=== PATIENT | male | born 1955 | race Caucasian/White ===

== ENCOUNTER 2017-03-14 22:41 | Emergency (ER) | payer OTHER ==
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
[2017-03-15 01:10] VITALS: BP 138/60
--- NOTE | 2017-03-18 10:37 | ER Document Report ---
Doctor's Note Notes: 03/18/17 10:36 I was presented with the patient's chart and a request for an MRI request. Patient was seen here following him the CT and CT scan showed bulging disc at the C6-7 level. He tried to follow-up as directed, but the neurosurgeon office apparently demanded an outpatient MRI prior to scheduling an appointment.
== END 2017-03-15 01:05 | disposition home or self-care (01) ==
LOC: ER 22:41
DX: M50.223 Other cervical disc displacement at C6-C7 level (principal); R51 Headache; V49.50XA Passenger injured in collision with unspecified motor vehicles in traffic accident, initial encounter
CPT/HCPCS: 99284; 70450; 72125; L0172

== ENCOUNTER → 2017-03-24 | Outpatient (CLI) | payer OTHER ==
--- NOTE | 2017-03-25 08:44 | RADIOLOGY REPORT (SQ) ---
EXAM DESCRIPTION: MRI CERVICAL SPINE WITHOUT COMPLETED DATE/TIME: 03/24/2017 7:29 pm REASON FOR STUDY: C6-7 DISC BULGE, PAIN COMPARISON: None. TECHNIQUE: Sagittal and Axial imaging includes T1, T2, STIR and gradient echo sequences. LIMITATIONS: Patient motion. FINDINGS: ALIGNMENT: Normal. VERTEBRAE: Intact. BONE MARROW: Normal. No marrow replacement or reactive changes. DISCS: Desiccation multiple levels. HARDWARE: None in the spine. CORD AND BASE OF BRAIN: Normal in size and signal intensity. SOFT TISSUES: No soft tissue masses. C1-C2: No significant spinal stenosis. C2-C3: Ventral impression on thecal sac due to disc osteophyte complex. Moderate right and severe le ft neural foraminal narrowing. C3-C4: Ventral impression on the thecal sac. Severe neural foraminal narrowing bilaterally. C4-C5: Ventral cord contact. Ligament thickening. Severe neural foraminal narrowing bilaterally. C5-C6: Ventral impression on the thecal sac approaching cord contact. Severe neural foraminal narrow ing bilaterally. C6-C7: Chronic endplate change. Ventral cord contact. Ligament thickening. Severe neural foraminal narrowing bilaterally. C7-T1: No significant spinal stenosis or exit foraminal stenosis. UPPER THORACIC: Incompletely imaged. Mild spinal stenosis T1-2. OTHER: No other significant finding. IMPRESSION: Mild spinal stenosis at multiple levels, most severe at C4-5 and C6-7. TECHNICAL DOCUMENTATION: JOB ID: [id number] [employer]- All Rights Reserved
== END ==
LOC: RAD 18:29
PROVIDERS: ATTEND Emergency Medicine
DX: M54.2 Cervicalgia (principal)
CPT/HCPCS: 72141

== ENCOUNTER 2019-03-17 14:19 | Emergency (ER) | payer OTHER ==
[2019-03-17] MEDS ORDERED: HYDROCODONE/ACETAMINOPHEN 5-325 MG TABLET PO ONE (14:50)
[2019-03-17] MEDS ORDERED: DIPH/PERTUSS(ACELL)/TETANUS VAC/PF 0.5 ML SYR (>=10YO) IM ONE (14:50)
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
[2019-03-17 16:46] VITALS: BP 162/65
== END 2019-03-17 16:47 | disposition home or self-care (01) ==
LOC: ER 14:19
DX: S73.102A Unspecified sprain of left hip, initial encounter (principal); S43.402A Unspecified sprain of left shoulder joint, initial encounter; S16.1XXA Strain of muscle, fascia and tendon at neck level, initial encounter; S50.812A Abrasion of left forearm, initial encounter; S80.212A Abrasion, left knee, initial encounter; M25.512 Pain in left shoulder; M25.522 Pain in left elbow; M25.562 Pain in left knee; V09.9XXA Pedestrian injured in unspecified transport accident, initial encounter
CPT/HCPCS: 72125; 90471; 90715; 99284

== ENCOUNTER → 2020-03-21 | Outpatient (CLI) | payer MEDICARE ==
[2020-03-21 12:25] VITALS: BP 133/62
--- NOTE | 2020-03-21 12:25 | ER RDC ASSESSMENT REPORT ---
Intake - In the Last 14 days Have you traveled outside [place]?: No Have you been in close contact with someone CONFIRMED: No - Symptoms Subjective Fever([place] feverish): Yes Chills: No Muscule Aches: No Runny Nose: No Sore Throat: No Cough (New or worsening chronic cough): Yes Shortness of breath: No Nausea or Vomiting: Yes Headache: No Abdominal Pain: No Diarrhea(3 or more loose stools in last 24 hours): No - Do you have any of the following Chronic lung disease: Asthma or emphysema or COPD: No Cystic Fibrosis: No Diabetes: Yes Diabetes Comment: Diabetes type 2 High Blood Pressure: No Cardiovascular Disease: No Chronic Kidney Disease: No Chronic Liver Disease: No Chronic blood disorder like Sickle Cell Disease: No Weak immune system due to disease or medication: No Neurologic condition that limits movement: No Developmental delay - Moderate to Severe: No Recent (within past 2 weeks) or current : No Morbid Obesity (>100 pounds over ideal weight): No Obesity Comment: Height 5 feet 8 inches weight 231 pounds - Objective Temperature: 97.1 F Pulse Rate: 71 Respiratory Rate: 20 Blood Pressure: 133/62 O2 Sat by Pulse Oximetry: 93 Objective: Given above, testing performed: If Testing Performed: Test Specimen Type Sent to General - General Information source: Patient Notes: Patient here today for COVID testing. Reports has been having upper respiratory symptoms cough since early March around March 07 has been followed by PCP Alanna GARCIA patient started on an antibiotic on Tuesday had been waking up in the morning short of breath and a cough would get feverish sweaty would cough up and then improved throughout the day and the last few days since he has been on the antibiotic he has been improving since. He has a follow-up appointment with Alanna butler next week and was encouraged to get screened for COVID. Patient denies being exposed to any positive COVID persons he is aware of. - Related Data Allergies/Adverse Reactions: No Known Allergies Allergy (Verified 03/17/19 14:20) Past Medical History - General Information source: Patient - Social History Smoking Status: Former Smoker - Patient quit smoking 15 years ago Family History: Reviewed & Not Pertinent Renal/ Medical History: Denies: Hx Peritoneal Dialysis Physical Exam - General General appearance: Appears well, Alert In distress: None Notes: PHYSICAL EXAMINATION: GENERAL: Well-appearing and in no acute distress. HEAD: Atraumatic, normocephalic. EYES: sclera anicteric, conjunctiva are normal. ENT: nares patent. Moist mucous membranes. NECK: Normal range of motion, supple without lymphadenopathy LUNGS: CTAB and equal. No wheezes rales or rhonchi. Resp even and unlabored. Lung Sounds clear. HEART: Regular rate and rhythm without murmurs ABDOMEN: Soft, nontender, normal bowel sounds, no guarding. EXTREMITIES: No cyanosis. NEUROLOGICAL: . Normal speech. PSYCH: Normal mood, normal affect. SKIN: Warm, Dry, normal turgor, Diagnostic Results Laboratory Results: Patient informed of negative rapid strep and negative rapid flu results. pending strep culture pending COVID testing results. Patient provided instructions re garding COVID to include: As a person under investigation for Covid 19, the [place] department of Health and Human Services, division of public health advises you to adhere to the following guidance until your test results are reported to you. If your test result is positive, you will receive additional information from your provider and your local health department at that time. Remain at home until you are cleared by the health provider or public health authorities. Keep a log of visitors to your home, notify any visitors to your home of your isolation status. If you plan to move to a new address or leave the county, notify the local health department in your County. Call your doctor or seek care if you have an urgent medical need. Before seeking medical care, call ahead to get instructions from the provider before arriving at the medical office clinic or hospital. Notify them that you are being tested for the virus that causes Covid 19 so that arrangements can be m marlon, as necessary, to prevent transmission to others in the healthcare setting. Next, notify the local health department in your county. If a medical emergency arises and you need to call 911, inform the first responders that you are being tested for the virus that causes Covid 19. Next, notify the local health department in your county. Patient Education/Counseling Counseling/Education: Patient presents with upper respiratory symptoms worrisome for possible Covid 19. Patient does not have emergency worring symptoms such as difficulty breathing, shortness of breath, chest pain, pressure, confusion or cyanosis. Patient appears suitable for discharge. Patient instructed to follow-up with PCP Alanna GARCIA today. To ED for persistent or worsening symptoms. patient's vital signs are stable and patient is nontoxic in appearance. Good return precautions have been discussed with patient, patient verbalized understanding and is agreeable with discharge plan of care at this time. RDC Discharge - Discharge Clinical Impression: COVID - 19 SCREENING Condition: Stable Disposition: Home; Selfcare
[2020-03-21 13:11] LABS: A TYPE INFLUENZA AG NEGATIVE (NEGATIVE); B INFLUENZA AG NEGATIVE (NEGATIVE)
== END ==
LOC: RDC 11:35
PROVIDERS: ATTEND Nurse Practitioner Family
DX: Z20.828 Contact with and (suspected) exposure to other viral communicable diseases (principal); R50.9 Fever, unspecified; R05 Cough; R11.0 Nausea; E11.9 Type 2 diabetes mellitus without complications; Z87.891 Personal history of nicotine dependence
CPT/HCPCS: 36415; 87070; 87880; 87804; U0003; C9803; 87635